=== PATIENT | male | born 1995 | race African-American/Black ===

== ENCOUNTER 2018-01-14 02:40 | Inpatient (IN) ==
[2018-01-16] MEDS ORDERED: Phenylephrine/NS 1000 MCG/10ML Syringe IV.PUSH ONE (12:00)
[2018-01-16] MEDS ORDERED: Lidocaine PF 1% Inj 5 ML Syringe INFILTRATN ONE (12:00)
[2018-01-17] MEDS ORDERED: Bisacodyl 10 MG Supp RECTAL PRN
[2018-01-17] MEDS ORDERED: Potassium Chloride 25 MEQ Effervescent Tablet PO PRN (00:01)
[2018-01-17] MEDS ORDERED: Acetaminophen 325 MG Tablet PO PRN (00:01)
[2018-01-17] MEDS ORDERED: Labetalol HCl Inj 100 MG/20 ML Vial IV.PUSH PRN (00:01)
[2018-01-17] MEDS ORDERED: niCARdipine Inj 25 MG in Sodium Chlor 0.9% Inj 250 ML IV.SIG PRN (00:01)
[2018-01-17] MEDS ORDERED: Chlorhexidine Gluconate 2% 1 Pack (2 Cloths) TOPICAL PRN (04:00)
[2018-01-17] MEDS: Senna/Docusate Sodium 8.6/50 MG Tablet PO SCH ×2 (08:56→22:52)
[2018-01-17] MEDS: Pantoprazole Inj 40 MG Vial IV.PUSH SCH (08:57)
[2018-01-17] MEDS: Sod Chloride 0.9% Inj 1,000 ML IV.SIG SCH ×2 (08:58→22:54)
[2018-01-17] MEDS: Chlorhexidine Gluconate 2% 1 Pack (2 Cloths) TOPICAL SCH (08:58)
[2018-01-17] MEDS: Artificial Tears Opth Drops 15 ML Bottle EACH EYE SCH ×3 (09:03→18:33)
--- NOTE | 2018-01-17 11:29 | P.PNNEU ---
Subjective Subjective Comments: sleeping acc to friend no new sx Active Medications: Active Medications Generic Name Dose Route Start Last Admin Trade Name Freq PRN Reason Stop Dose Admin Acetaminophen 650 mg 01/17/18 00:01 Tylenol PO Q6H PRN PAIN SCALE 1 TO 10 Al Hydroxide/Mg Hydroxide 30 ml 01/17/18 00:00 Milk Of Magnesia Liq PO Q12H PRN MILD CONSTIPATION Albuterol 2.5 mg 01/17/18 00:01 Albuterol Neb (Prn) INH Q2HR NEB PRN SHORTNESS OF BREATH/WHEEZING Artificial Tears 1 drop 01/17/18 09:00 01/17/18 09:03 Tears Naturale Opth Drops EACH EYE Not Given TID ABRAHAM Aspirin 81 mg 01/17/18 09:00 01/17/18 08:56 Ecotrin PO 81 mg DAILY ABRAHAM Administration Atorvastatin Calcium 10 mg 01/17/18 21:00 Lipitor PO HS [facility] Bisacodyl 10 mg 01/17/18 00:00 Dulcolax Supp RECTAL DAILY PRN SEVERE CONSITIPATION Chlorhexidine Gluconate 3 pack 01/17/18 04:00 01/17/18 08:58 Chlorhexidine 2% Cloth TOPICAL 01/22/18 03:59 Not Given DAILY@0400 [facility] Chlorhexidine Gluconate 3 pack 01/17/18 04:00 Chlorhexidine 2% Cloth TOPICAL UNSCH PRN Extra cloth needed Sodium Chloride 1,000 mls @ 84 mls/hr 01/17/18 00:01 01/17/18 08:58 Ns Inj IV.SIG Not Given .[id number] [facility] Nicardipine HCl 25 mg/ Sodium 260 mls @ 52 mls/hr 01/17/18 00:01 Chloride IV.SIG TITRATE PRN MAINTAIN BP GOAL Protocol 5 MG/HR Labetalol HCl 10 mg 01/17/18 00:01 Trandate Inj IV.PUSH Q2H PRN SBP>180, DBP>100, HR>65 Lactulose 30 ml 01/17/18 00:00 Lactulose Liq PO DAILY PRN SEVERE CONSITIPATION Ondansetron HCl 4 mg 01/17/18 00:01 Zofran Odt PO Q6H PRN NAUSEA OR VOMITING Pantoprazole Sodium 40 mg 01/17/18 09:00 01/17/18 08:57 Protonix Inj IV.PUSH 40 mg DAILY ABRAHAM Administration Potassium Bicarb/Potassium Chloride 50 meq 01/17/18 00:01 K-Lyte Cl Eff PO UNSCH PRN FOR POTASSIUM 3.3-3.5 MEQ/L Senna/Docusate Sodium 1 tab 01/17/18 09:00 01/17/18 08:56 Karen-Colace PO 1 tab BID ABRAHAM Administration Sennosides 17.2 mg 01/17/18 00:00 Senokot PO Q12H PRN MODERATE CONSTIPATION Sodium Chloride 2 ml 01/17/18 00:01 Ns Flush IV.FLUSH UNSCH PRN FLUSH AFTER USING IV ACCESS Sodium Chloride 2 ml 01/17/18 09:00 01/17/18 08:58 Ns Flush IV.FLUSH 2 ml BID ABRAHAM Administration Allergies/Adverse Reactions: Allergies Allergy/AdvReac Type Severity Reaction Status Date / Time codeine Allergy Severe UNKNOWN Verified 01/16/18 09:59 oxycodone Allergy Severe UNKNOWN Verified 01/16/18 09:59 Physical Exam Vital signs: Vital Signs 01/17/18 00:00 01/17/18 05:30 01/17/18 08:00 Temperature 98 F 98.8 F 97.7 F Pulse Rate 68 68 63 Respiratory Rate 16 16 18 Blood Pressure 138/69 130/64 131/66 Pulse Oximetry 97 99 98 Intake & Output 01/16/18 01/17/18 01/17/18 18:59 06:59 18:59 Intake Total 1200 / 1200 Output Total 0 / 0 Balance 1200 / 1200 Weight 93.2 kg 93.5 kg Intake: Oral 1200 / 1200 Output: Stool 0 / 0 Other: # Voids 4 Narrative: asleep Objective Laboratory Results - last 24 hr 01/14/18 01/14/18 01/14/18 03:00 03:00 03:00 WBC 8.0 RBC 5.66 Hgb 15.9 POC Hgb 16.3 Hct 47.0 POC Hct 48.0 MCV 83.0 MCH 28.2 MCHC 33.9 RDW 14.2 Plt Count 179 MPV 9.2 Neut % (Auto) 34.4 Lymph % (Auto) 52.1 H [place] % (Auto) 12.1 H Eos % (Auto) 1.0 Baso % (Auto) 0.4 Neut # (Auto) 2.8 Lymph # (Auto) 4.2 [place] # (Auto) 1.0 H Eos # (Auto) 0.1 Baso # (Auto) 0.0 CBC Comment DIFF FINAL ESR PT 10.6 INR 1.0 APTT 23.6 L Fibrinogen 206 L POC Sodium 140 Sodium 140 POC Potassium 3.2 L Potassium 3.2 L POC Chloride 98 L Chloride 105 Carbon Dioxide 24.1 Anion Gap 11 POC BUN 5 BUN 6 L Creatinine 1.22 POC Creatinine 1.1 Estimated GFR 90 POC Glucose 154 H Random Glucose 143 H Hemoglobin A1c Lactic Acid Calcium 8.7 Prot Corrected Calcium Phosphorus Magnesium Total Bilirubin 0.5 AST 13 L ALT 21 Alkaline Phosphatase 64 Total Creatine Kinase 138 Troponin I LESS THAN 0.02 L C-Reactive Protein Total Protein 7.6 Albumin 4.2 Triglycerides Cholesterol LDL Cholesterol HDL Cholesterol Cholesterol/HDL Ratio Vitamin B12 Folate Free T4 TSH 3rd Generation Urine Color Urine Turbidity Urine pH Ur Specific [place] Urine Protein Urine Glucose (UA) Urine Ketones Urine Occult Blood Urine Nitrite Urine Bilirubin Urine Urobilinogen Ur Leukocyte Esterase Urine RBC Urine WBC Urine Mucus Nasal Screen MRSA (PCR) Urine Opiates Screen Ur Barbiturates Screen Ur Amphetamines Screen U Benzodiazepines Scrn Urine Cocaine Screen U Cannabinoids Screen 01/14/18 01/14/18 01/14/18 03:00 05:00 06:00 WBC RBC Hgb POC Hgb Hct POC Hct MCV MCH MCHC RDW Plt Count MPV Neut % (Auto) Lymph % (Auto) [place] % (Auto) Eos % (Auto) Baso % (Auto) Neut # (Auto) Lymph # (Auto) [place] # (Auto) Eos # (Auto) Baso # (Auto) CBC Comment ESR PT INR APTT Fibrinogen POC Sodium Sodium Cancelled POC Potassium Potassium Cancelled POC Chloride Chloride Cancelled Carbon Dioxide Cancelled Anion Gap Cancelled POC BUN BUN Cancelled Creatinine Cancelled POC Creatinine Estimated GFR Cancelled POC Glucose Random Glucose Cancelled Hemoglobin A1c Lactic Acid Calcium Cancelled Prot Corrected Calcium Cancelled Phosphorus Magnesium Total Bilirubin Cancelled AST Cancelled ALT Cancelled Alkaline Phosphatase Cancelled Total Creatine Kinase Troponin I C-Reactive Protein Total Protein Cancelled Albumin Cancelled Triglycerides Cholesterol LDL Cholesterol HDL Cholesterol Cholesterol/HDL Ratio Vitamin B12 Folate Free T4 TSH 3rd Generation Urine Color Urine Turbidity Urine pH Ur Specific [place] Urine Protein Urine Glucose (UA) Urine Ketones Urine Occult Blood Urine Nitrite Urine Bilirubin Urine Urobilinogen Ur Leukocyte Esterase Urine RBC Urine WBC Urine Mucus Nasal Screen MRSA (PCR) MRSA NOT DETECTED Urine Opiates Screen NEG Ur Barbiturates Screen NEG Ur Amphetamines Screen NEG U Benzodiazepines Scrn NEG Urine Cocaine Screen NEG U Cannabinoids Screen POS H 01/14/18 01/15/18 01/15/18 06:00 05:21 05:21 WBC RBC Hgb POC Hgb Hct POC Hct MCV MCH MCHC RDW Plt Count MPV Neut % (Auto) Lymph % (Auto) [place] % (Auto) Eos % (Auto) Baso % (Auto) Neut # (Auto) Lymph # (Auto) [place] # (Auto) Eos # (Auto) Baso # (Auto) CBC Comment ESR PT INR APTT Fibrinogen POC Sodium Sodium 141 POC Potassium Potassium 3.4 L POC Chloride Chloride 106 Carbon Dioxide 25.3 Anion Gap 10 POC BUN BUN 4 L Creatinine 1.09 POC Creatinine Estimated GFR 103 POC Glucose Random Glucose 94 Hemoglobin A1c 4.9 Lactic Acid 1.2 Calcium 8.5 Prot Corrected Calcium Phosphorus 2.8 Magnesium 2.0 Total Bilirubin 1.1 H AST 11 L ALT 19 Alkaline Phosphatase 57 Total Creatine Kinase 92 Troponin I C-Reactive Protein Total Protein 7.2 Albumin 4.0 Triglycerides 60 Cholesterol 161 LDL Cholesterol 91 HDL Cholesterol 58.2 Cholesterol/HDL Ratio 2.76 Vitamin B12 Folate Free T4 TSH 3rd Generation Urine Color YELLOW Urine Turbidity CLEAR Urine pH 7.0 Ur Specific [place] 1.060 H Urine Protein NEG Urine Glucose (UA) NEG Urine Ketones NEG Urine Occult Blood NEG Urine Nitrite NEG Urine Bilirubin NEG Urine Urobilinogen LESS THAN 2 Ur Leukocyte Esterase NEG Urine RBC 1 Urine WBC LESS THAN 1 Urine Mucus FEW H Nasal Screen MRSA (PCR) Urine Opiates Screen Ur Barbiturates Screen Ur Amphetamines Screen U Benzodiazepines Scrn Urine Cocaine Screen U Cannabinoids Screen 01/15/18 01/15/18 01/15/18 05:21 05:21 15:00 WBC 7.9 RBC 5.57 Hgb 15.8 POC Hgb Hct 45.9 POC Hct MCV 82.4 MCH 28.4 MCHC 34.5 RDW 14.3 Plt Count 178 MPV 9.5 Neut % (Auto) 54.6 Lymph % (Auto) 32.4 [place] % (Auto) 11.8 H Eos % (Auto) 0.5 Baso % (Auto) 0.7 Neut # (Auto) 4.3 Lymph # (Auto) 2.6 [place] # (Auto) 0.9 Eos # (Auto) 0.0 Baso # (Auto) 0.1 CBC Comment DIFF FINAL ESR PT 11.3 INR 1.1 APTT 25.7 Fibrinogen POC Sodium Sodium POC Potassium Potassium 3.9 POC Chloride Chloride Carbon Dioxide Anion Gap POC BUN BUN Creatinine POC Creatinine Estimated GFR POC Glucose Random Glucose Hemoglobin A1c Lactic Acid Calcium Prot Corrected Calcium Phosphorus Magnesium Total Bilirubin AST ALT Alkaline Phosphatase Total Creatine Kinase Troponin I C-Reactive Protein Total Protein Albumin Triglycerides Cholesterol LDL Cholesterol HDL Cholesterol Cholesterol/HDL Ratio Vitamin B12 Folate Free T4 TSH 3rd Generation Urine Color Urine Turbidity Urine pH Ur Specific [place] Urine Protein Urine Glucose (UA) Urine Ketones Urine Occult Blood Urine Nitrite Urine Bilirubin Urine Urobilinogen Ur Leukocyte Esterase Urine RBC Urine WBC Urine Mucus Nasal Screen MRSA (PCR) Urine Opiates Screen Ur Barbiturates Screen Ur Amphetamines Screen U Benzodiazepines Scrn Urine Cocaine Screen U Cannabinoids Screen 01/16/18 01/16/18 17:41 17:41 WBC RBC Hgb POC Hgb Hct POC Hct MCV MCH MCHC RDW Plt Count MPV Neut % (Auto) Lymph % (Auto) [place] % (Auto) Eos % (Auto) Baso % (Auto) Neut # (Auto) Lymph # (Auto) [place] # (Auto) Eos # (Auto) Baso # (Auto) CBC Comment ESR 1 PT INR APTT Fibrinogen POC Sodium Sodium POC Potassium Potassium POC Chloride Chloride Carbon Dioxide Anion Gap POC BUN BUN Creatinine POC Creatinine Estimated GFR POC Glucose Random Glucose Hemoglobin A1c Lactic Acid Calcium Prot Corrected Calcium Phosphorus Magnesium Total Bilirubin AST ALT Alkaline Phosphatase Total Creatine Kinase Troponin I C-Reactive Protein LESS THAN 0.29 Total Protein Albumin Triglycerides Cholesterol LDL Cholesterol HDL Cholesterol Cholesterol/HDL Ratio Vitamin B12 875 Folate 6.9 Free T4 1.19 TSH 3rd Generation 1.130 Urine Color Urine Turbidity Urine pH Ur Specific [place] Urine Protein Urine Glucose (UA) Urine Ketones Urine Occult Blood Urine Nitrite Urine Bilirubin Urine Urobilinogen Ur Leukocyte Esterase Urine RBC Urine WBC Urine Mucus Nasal Screen MRSA (PCR) Urine Opiates Screen Ur Barbiturates Screen Ur Amphetamines Screen U Benzodiazepines Scrn Urine Cocaine Screen U Cannabinoids Screen Review/Management - Review/Management Plan: imp bahman is negative a hyperechoic screen is pending his other blood work looks fine his Holter monitor is pending echocardiogram is normal. His EEG was normal. This likely was a complicated migraine and he should take a baby aspirin a day. Dr. najera will follow up in the a.m. Cardiology has recommended a stress test. ldl nl
--- NOTE | 2018-01-17 15:28 | P.PNCA ---
Subjective Interval history: Follow up for Dr. Dunbar No events overnight Doing well post-MAKENNA Physical Exam Vital signs: Vital Signs 01/17/18 00:00 01/17/18 05:30 01/17/18 08:00 Temperature 98 F 98.8 F 97.7 F Pulse Rate 68 68 63 Respiratory Rate 16 16 18 Blood Pressure 138/69 130/64 131/66 Pulse Oximetry 97 99 98 01/17/18 12:00 01/17/18 14:30 Temperature 98.7 F Pulse Rate 62 Respiratory Rate 18 Blood Pressure 142/66 H Pulse Oximetry 99 98 Intake & Output 01/16/18 01/17/18 01/17/18 18:59 06:59 18:59 Intake Total 1200 / 1200 Output Total 0 / 0 Balance 1200 / 1200 Weight 93.2 kg 93.5 kg Intake: Oral 1200 / 1200 Output: Stool 0 / 0 Other: # Voids 4 Narrative: GENERAL: NAD, AAOx3 SKIN: Warm and dry. HEAD: Atraumatic. Normocephalic. EYES: Pupils equal and round. No scleral icterus. No injection or drainage. ENT: No nasal bleeding or discharge. Mucous membranes pink and moist. NECK: Trachea midline. No JVD. CARDIOVASCULAR: Regular rate and rhythm. RESPIRATORY: No accessory muscle use. Clear to auscultation. Breath sounds equal bilaterally. GASTROINTESTINAL: Abdomen soft, non-tender, nondistended. Hepatic and splenic margins not palpable. MUSCULOSKELETAL: Extremities without clubbing, cyanosis, or edema. No obvious deformities. NEUROLOGICAL: Awake and alert. No obvious cranial nerve deficits. Motor grossly within normal limits. Five out of 5 muscle strength in the arms and legs. Normal speech. PSYCHIATRIC: Appropriate mood and affect; insight and judgment normal. Assessment and Plan - Assessment (1) Complicated migraine Code(s): G43.109 - Migraine with aura, not intractable, without status migrainosus Status: Acute (2) Chest pain Code(s): R07.9 - Chest pain, unspecified Status: Acute - Plan 1) Left sided neurologic issues Resolved s/p TPA Per Neurology, most likely complicated migraine MAKENNA negative for PFO 2) Chest pain Has been having retrosternal chest pain Most likely low risk in a 22 year old Plan for stress test Discussed that he was getting radiation at such a young age, he and his mother understand NPO after midnight If negative then can be discharged home from cardiovascular standpoint
--- NOTE | 2018-01-17 15:29 | P.PN ---
Subjective Interval history: Resting comfortably in bed No event overnight Denied chest and or short of breath No fever or chills Physical Exam Vital signs: Vital Signs 01/17/18 00:00 01/17/18 05:30 01/17/18 08:00 Temperature 98 F 98.8 F 97.7 F Pulse Rate 68 68 63 Respiratory Rate 16 16 18 Blood Pressure 138/69 130/64 131/66 Pulse Oximetry 97 99 98 01/17/18 12:00 01/17/18 14:30 Temperature 98.7 F Pulse Rate 62 Respiratory Rate 18 Blood Pressure 142/66 H Pulse Oximetry 99 98 Intake & Output 01/16/18 01/17/18 01/17/18 18:59 06:59 18:59 Intake Total 1200 / 1200 Output Total 0 / 0 Balance 1200 / 1200 Weight 93.2 kg 93.5 kg Intake: Oral 1200 / 1200 Output: Stool 0 / 0 Other: # Voids 4 Narrative: GENERAL: This is a well-nourished, well-developed patient, in no apparent distress. CARDIOVASCULAR: RRR, no gallops, or rubs. RESPIRATORY: Fair air entry bilaterally. No W, R, or R GASTROINTESTINAL: Abdomen soft, non-tender, nondistended. Positive bowel sounds MUSCULOSKELETAL: Extremities without clubbing, cyanosis, or edema. Pedal pulses appreciated NEUROLOGICAL: Awake and alert. Moves all extremity. Normal speech.no focal neurological deficit Results - Labs CBC & Chem 7: 01/15/18 05:21 01/15/18 15:00 Laboratory Results - last 24 hr 01/14/18 01/14/18 01/14/18 03:00 03:00 03:00 WBC 8.0 RBC 5.66 Hgb 15.9 POC Hgb 16.3 Hct 47.0 POC Hct 48.0 MCV 83.0 MCH 28.2 MCHC 33.9 RDW 14.2 Plt Count 179 MPV 9.2 Neut % (Auto) 34.4 Lymph % (Auto) 52.1 H [place] % (Auto) 12.1 H Eos % (Auto) 1.0 Baso % (Auto) 0.4 Neut # (Auto) 2.8 Lymph # (Auto) 4.2 [place] # (Auto) 1.0 H Eos # (Auto) 0.1 Baso # (Auto) 0.0 CBC Comment DIFF FINAL ESR PT 10.6 INR 1.0 APTT 23.6 L Fibrinogen 206 L POC Sodium 140 Sodium 140 POC Potassium 3.2 L Potassium 3.2 L POC Chloride 98 L Chloride 105 Carbon Dioxide 24.1 Anion Gap 11 POC BUN 5 BUN 6 L Creatinine 1.22 POC Creatinine 1.1 Estimated GFR 90 POC Glucose 154 H Random Glucose 143 H Hemoglobin A1c Lactic Acid Calcium 8.7 Prot Corrected Calcium Phosphorus Magnesium Total Bilirubin 0.5 AST 13 L ALT 21 Alkaline Phosphatase 64 Total Creatine Kinase 138 Troponin I LESS THAN 0.02 L C-Reactive Protein Total Protein 7.6 Albumin 4.2 Triglycerides Cholesterol LDL Cholesterol HDL Cholesterol Cholesterol/HDL Ratio Vitamin B12 Folate Free T4 TSH 3rd Generation Urine Color Urine Turbidity Urine pH Ur Specific [place] Urine Protein Urine Glucose (UA) Urine Ketones Urine Occult Blood Urine Nitrite Urine Bilirubin Urine Urobilinogen Ur Leukocyte Esterase Urine RBC Urine WBC Urine Mucus Nasal Screen MRSA (PCR) Urine Opiates Screen Ur Barbiturates Screen Ur Amphetamines Screen U Benzodiazepines Scrn Urine Cocaine Screen U Cannabinoids Screen 01/14/18 01/14/18 01/14/18 03:00 05:00 06:00 WBC RBC Hgb POC Hgb Hct POC Hct MCV MCH MCHC RDW Plt Count MPV Neut % (Auto) Lymph % (Auto) [place] % (Auto) Eos % (Auto) Baso % (Auto) Neut # (Auto) Lymph # (Auto) [place] # (Auto) Eos # (Auto) Baso # (Auto) CBC Comment ESR PT INR APTT Fibrinogen POC Sodium Sodium Cancelled POC Potassium Potassium Cancelled POC Chloride Chloride Cancelled Carbon Dioxide Cancelled Anion Gap Cancelled POC BUN BUN Cancelled Creatinine Cancelled POC Creatinine Estimated GFR Cancelled POC Glucose Random Glucose Cancelled Hemoglobin A1c Lactic Acid Calcium Cancelled Prot Corrected Calcium Cancelled Phosphorus Magnesium Total Bilirubin Cancelled AST Cancelled ALT Cancelled Alkaline Phosphatase Cancelled Total Creatine Kinase Troponin I C-Reactive Protein Total Protein Cancelled Albumin Cancelled Triglycerides Cholesterol LDL Cholesterol HDL Cholesterol Cholesterol/HDL Ratio Vitamin B12 Folate Free T4 TSH 3rd Generation Urine Color Urine Turbidity Urine pH Ur Specific [place] Urine Protein Urine Glucose (UA) Urine Ketones Urine Occult Blood Urine Nitrite Urine Bilirubin Urine Urobilinogen Ur Leukocyte Esterase Urine RBC Urine WBC Urine Mucus Nasal Screen MRSA (PCR) MRSA NOT DETECTED Urine Opiates Screen NEG Ur Barbiturates Screen NEG Ur Amphetamines Screen NEG U Benzodiazepines Scrn NEG Urine Cocaine Screen NEG U Cannabinoids Screen POS H 01/14/18 01/15/18 01/15/18 06:00 05:21 05:21 WBC RBC Hgb POC Hgb Hct POC Hct MCV MCH MCHC RDW Plt Count MPV Neut % (Auto) Lymph % (Auto) [place] % (Auto) Eos % (Auto) Baso % (Auto) Neut # (Auto) Lymph # (Auto) [place] # (Auto) Eos # (Auto) Baso # (Auto) CBC Comment ESR PT INR APTT Fibrinogen POC Sodium Sodium 141 POC Potassium Potassium 3.4 L POC Chloride Chloride 106 Carbon Dioxide 25.3 Anion Gap 10 POC BUN BUN 4 L Creatinine 1.09 POC Creatinine Estimated GFR 103 POC Glucose Random Glucose 94 Hemoglobin A1c 4.9 Lactic Acid 1.2 Calcium 8.5 Prot Corrected Calcium Phosphorus 2.8 Magnesium 2.0 Total Bilirubin 1.1 H AST 11 L ALT 19 Alkaline Phosphatase 57 Total Creatine Kinase 92 Troponin I C-Reactive Protein Total Protein 7.2 Albumin 4.0 Triglycerides 60 Cholesterol 161 LDL Cholesterol 91 HDL Cholesterol 58.2 Cholesterol/HDL Ratio 2.76 Vitamin B12 Folate Free T4 TSH 3rd Generation Urine Color YELLOW Urine Turbidity CLEAR Urine pH 7.0 Ur Specific [place] 1.060 H Urine Protein NEG Urine Glucose (UA) NEG Urine Ketones NEG Urine Occult Blood NEG Urine Nitrite NEG Urine Bilirubin NEG Urine Urobilinogen LESS THAN 2 Ur Leukocyte Esterase NEG Urine RBC 1 Urine WBC LESS THAN 1 Urine Mucus FEW H Nasal Screen MRSA (PCR) Urine Opiates Screen Ur Barbiturates Screen Ur Amphetamines Screen U Benzodiazepines Scrn Urine Cocaine Screen U Cannabinoids Screen 01/15/18 01/15/18 01/15/18 05:21 05:21 15:00 WBC 7.9 RBC 5.57 Hgb 15.8 POC Hgb Hct 45.9 POC Hct MCV 82.4 MCH 28.4 MCHC 34.5 RDW 14.3 Plt Count 178 MPV 9.5 Neut % (Auto) 54.6 Lymph % (Auto) 32.4 [place] % (Auto) 11.8 H Eos % (Auto) 0.5 Baso % (Auto) 0.7 Neut # (Auto) 4.3 Lymph # (Auto) 2.6 [place] # (Auto) 0.9 Eos # (Auto) 0.0 Baso # (Auto) 0.1 CBC Comment DIFF FINAL ESR PT 11.3 INR 1.1 APTT 25.7 Fibrinogen POC Sodium Sodium POC Potassium Potassium 3.9 POC Chloride Chloride Carbon Dioxide Anion Gap POC BUN BUN Creatinine POC Creatinine Estimated GFR POC Glucose Random Glucose Hemoglobin A1c Lactic Acid Calcium Prot Corrected Calcium Phosphorus Magnesium Total Bilirubin AST ALT Alkaline Phosphatase Total Creatine Kinase Troponin I C-Reactive Protein Total Protein Albumin Triglycerides Cholesterol LDL Cholesterol HDL Cholesterol Cholesterol/HDL Ratio Vitamin B12 Folate Free T4 TSH 3rd Generation Urine Color Urine Turbidity Urine pH Ur Specific [place] Urine Protein Urine Glucose (UA) Urine Ketones Urine Occult Blood Urine Nitrite Urine Bilirubin Urine Urobilinogen Ur Leukocyte Esterase Urine RBC Urine WBC Urine Mucus Nasal Screen MRSA (PCR) Urine Opiates Screen Ur Barbiturates Screen Ur Amphetamines Screen U Benzodiazepines Scrn Urine Cocaine Screen U Cannabinoids Screen 01/16/18 01/16/18 17:41 17:41 WBC RBC Hgb POC Hgb Hct POC Hct MCV MCH MCHC RDW Plt Count MPV Neut % (Auto) Lymph % (Auto) [place] % (Auto) Eos % (Auto) Baso % (Auto) Neut # (Auto) Lymph # (Auto) [place] # (Auto) Eos # (Auto) Baso # (Auto) CBC Comment ESR 1 PT INR APTT Fibrinogen POC Sodium Sodium POC Potassium Potassium POC Chloride Chloride Carbon Dioxide Anion Gap POC BUN BUN Creatinine POC Creatinine Estimated GFR POC Glucose Random Glucose Hemoglobin A1c Lactic Acid Calcium Prot Corrected Calcium Phosphorus Magnesium Total Bilirubin AST ALT Alkaline Phosphatase Total Creatine Kinase Troponin I C-Reactive Protein LESS THAN 0.29 Total Protein Albumin Triglycerides Cholesterol LDL Cholesterol HDL Cholesterol Cholesterol/HDL Ratio Vitamin B12 875 Folate 6.9 Free T4 1.19 TSH 3rd Generation 1.130 Urine Color Urine Turbidity Urine pH Ur Specific [place] Urine Protein Urine Glucose (UA) Urine Ketones Urine Occult Blood Urine Nitrite Urine Bilirubin Urine Urobilinogen Ur Leukocyte Esterase Urine RBC Urine WBC Urine Mucus Nasal Screen MRSA (PCR) Urine Opiates Screen Ur Barbiturates Screen Ur Amphetamines Screen U Benzodiazepines Scrn Urine Cocaine Screen U Cannabinoids Screen Assessment and Plan - Plan 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 CT angiogram of the brain and neck 01/14 revealed no acute findings Status post alteplase 8.2 mg bolus followed by 74 mg Keep systolic blood pressure less than 180 diastolic blood pressure less than 105 2D echocardiogram ordered with bubble study lipid profile and hemoglobin A1c all within normal limits, A1c 4.9, total cholesterol 161 Neurochecks MRI brain ordered for today CT brain 24 hours post alteplase negative CTA of the neck on 01/15 also negative Neurology consulted cardiology for MAKENNA rule out PFO PT/OT/ST evaluate and treat 01/16: MRI of the brain is ordered by neurology reviewed personally by me negative, patient going for MAKENNA at 3 PM, continue following with cardiology and neurology 01/17: MAKENNA is negative, discussed with neurology and with cardiology, neurology saying it might be possibly stroke type migraine, discussed with cardiology and for stress test tomorrow, monitor clinically under telemetry, EEG negative
[2018-01-18] MEDS: Chlorhexidine Gluconate 2% 1 Pack (2 Cloths) TOPICAL SCH (04:12)
--- NOTE | 2018-01-18 07:54 | MG ---
cc: Fuentes Eric MD DATE: 01/17/2018. EEG NUMBER: [id number] INDICATION: History of TIA, left-sided numbness. Aspirin. DESCRIPTION: A 9-10 Hz, 60 microvolt posterior rhythm is seen. Recording overall is synchronous and symmetric. I do not see any temporal lobe abnormalities. No right hemisphere abnormalities are seen. Photic stimulation is performed without significant posterior driving. Hyperventilation is performed without change in the background. IMPRESSION: Normal awake EEG. No evidence for focal or diffuse abnormality. Fuentes Eric MD DJM/TL , 10:14 AM , 11:07 AM
[2018-01-18] MEDS: Pantoprazole Inj 40 MG Vial IV.PUSH SCH (08:51)
[2018-01-18] MEDS: Artificial Tears Opth Drops 15 ML Bottle EACH EYE SCH (08:54)
[2018-01-18] MEDS: Senna/Docusate Sodium 8.6/50 MG Tablet PO SCH (08:56)
[2018-01-18] MEDS: Sod Chloride 0.9% Inj 1,000 ML IV.SIG SCH (11:32)
--- NOTE | 2018-01-18 12:22 | P.PNCA ---
Subjective Interval history: No events overnight Anxious to get home Physical Exam Vital signs: Vital Signs 01/17/18 14:30 01/17/18 16:00 01/17/18 21:57 Temperature 99.1 F 99 F Pulse Rate 60 75 Respiratory Rate 18 16 Blood Pressure 129/73 139/90 Pulse Oximetry 98 98 100 01/18/18 00:50 01/18/18 05:00 01/18/18 08:36 Temperature 98 F 98.8 F 98.8 F Pulse Rate 69 60 73 Respiratory Rate 16 16 20 Blood Pressure 128/89 125/88 129/71 Pulse Oximetry 100 100 98 01/18/18 12:10 Temperature 98.0 F Pulse Rate 77 Respiratory Rate 20 Blood Pressure 132/84 Pulse Oximetry 99 Intake & Output 01/17/18 01/18/18 01/18/18 18:59 06:59 18:59 Intake Total 1999 Balance 1999 Weight 93.5 kg Intake: Oral 1999 Other: # Voids 5 4 # Bowel Movements 0 - Constitutional no acute distress, mild distress - Routine HEENT Exam Head: Present: normocephalic, atraumatic Eye: Present: EOMI, PERRL ENT: Present: mucous membranes moist - Routine Neck Exam Present: supple. Absent: JVD - Routine Respiratory Exam Present: CTA bilaterally. Absent: accessory muscle use - Routine Cardiovascular Exam Present: RRR, S1, S2 - Routine Abdominal Exam Present: soft, normoactive bowel sounds. Absent: tenderness - Routine Extremities Exam Absent: cyanosis, clubbing, edema - Routine Skin Exam Present: intact, dry. Absent: cyanosis, erythema - Routine Neurological Exam Present: alert, oriented X3, CN II-XII intact - Routine Psychiatric Exam Present: normal affect Assessment and Plan - Assessment (1) Complicated migraine Code(s): G43.109 - Migraine with aura, not intractable, without status migrainosus Status: Acute (2) Chest pain Code(s): R07.9 - Chest pain, unspecified Status: Acute - Plan 1) Left sided neurologic issues Resolved s/p TPA Per Neurology, most likely complicated migraine MAKENNA negative for PFO 2) Chest pain Has been having retrosternal chest pain Most likely low risk in a 22 year old Plan for stress test Discussed that he was getting radiation at such a young age, he and his mother understand If negative then can be discharged home from cardiovascular standpoint
--- NOTE | 2018-01-18 17:45 | P.DS ---
Date of admission: 01/14/18 04:14 Primary care physician: No Primary Care Physician Brief History from admission: This is a 22 yo AAM. Date of admission 01/06/2018. Past medical history is negative.2 patient presents to [facility] with acute onset of paresthesias/ sensation of numbness involving the left side of face, left side of body including left arm and left leg, and acute weakness involving the left arm the left leg. Mr. Segal states that his symptoms initiated during sexual intercourse about half an hour prior to arrival. Patient states that his penis became flaccid and he started having paresthesias in his left inguinal region.. Afterwards, acute onset of numbness sensation in the left side of face, left arm and left leg and then weakness of the left arm and left leg. Patient states that he started having numbness sensation of left-sided chest wall also. Patient complains of mild achiness in the left lower back area. Patient denies any headache. Patient denies any visual change. Patient denies any neck pain. Patient denies any chest pain or shortness of breath. Patient denies abdominal pain. Patient denies any injury including recent rectal trauma. Patient is not on any routine medication but recently took alprazolam within the past 10 days. Patient denies any alcohol abuse but occasionally does use alcohol. Patient states that his smoke pot occasionally. Patient denies a history of cocaine abuse. Patient denies any other illicit drug abuse. Patient denies any personal or family history of arrhythmia TIA or CVA. His sister does have a history of heart murmur NIH score was 4 including 1 for drift right arm and leg and 2 for sensory deficit. Patient had CT brain, CT angiogram of the head and neck which revealed no acute findings. Patient received 8.2 mg alteplase followed by a 74 mg infusion after discussion with follow-up. MRI of the brain along with 2D echocardiogram is ordered. Patient's symptoms are essentially resolved with examination in the ED in room C 25 DS: Diagnosis - Discharge Diagnosis (1) Complicated migraine Status: Acute DS: Medications - Discharge Medications Prescriptions: aspirin 81 mg PO DAILY #30 tab DS: Summary Hospital Course: 22 years old admitted to the ED with left upper and lower extremity weakness and paresthesia initially was as stroke alert patient got TPA neurology consulted, multiple imaging did not show significant including CT brain CTA and MRI of the brain did not reveal stroke, neurology was following during that MAKENNA was recommended to rule out PFO and this came back negative, therefore neurology thought it is none stroke type migraine, cardiology was consulted for MAKENNA and the patient at that time complained of chest pain so he recommended stress test however patient declined and he stated he will follow up and do the test as an outpatient. Patient was sent on aspirin per neurology recommendation , his lipid panel within normal limits no need for statin - Time Spent with Patient Total time spent providing and/or coordinating discharge services: Exam Vital signs: Vital Signs 01/17/18 21:57 01/18/18 00:50 01/18/18 05:00 Temperature 99 F 98 F 98.8 F Pulse Rate 75 69 60 Respiratory Rate 16 16 16 Blood Pressure 139/90 128/89 125/88 Pulse Oximetry 100 100 100 01/18/18 08:00 01/18/18 08:36 01/18/18 12:10 Temperature 98.8 F 98.0 F Pulse Rate 75 73 77 Respiratory Rate 20 20 Blood Pressure 129/71 132/84 Pulse Oximetry 98 99 Intake & Output 01/17/18 01/18/18 01/18/18 18:59 06:59 18:59 Intake Total 1999 Balance 1999 Weight 93.5 kg Intake: Oral 1999 Other: # Voids 5 1 Date of Last Bowel Movement 01/18/18 01/18/18 # Bowel Movements 0 Results Procedures completed during hospitalization: TPA, MAKENNA Discharge Plan - Discharge Disposition Patient Disposition: 01 Discharge Home - Discharge Condition Condition: Good - Discharge Order Discharge Orders: Discharge Order (Routine); Ordered 01/18/18 Ordered By: Sadie Kraus - Physicians Team Primary Care Provider: Primary Care Holly Sibley Attending Provider: Sadie Kraus Other Providers: Sonido Dunbar MD ; Timi Watkins MD ; Sadie Kraus MD ; Brendan Kelsey MD - Rxs /Orders / Referrals /Forms Prescriptions: New aspirin 81 mg Tablet,Delayed Release (Dr/Ec) 81 mg PO DAILY Qty: 30 RF: 0 Referrals: Sonido Dunbar MD [Physician] - 01/22/18 ( office is closed fro January 18- please xacarmen santos that to schedule appt.) Fuentes Malave MD [Physician] - 01/22/18 (office was closed foe lunch call for appt.) Primary Care Holly Sibley [Primary Care Provider] - See Instructions ([facility] [phone] pleas call to make appt.)
--- NOTE | 2018-01-22 09:37 | HM ---
Date Performed: 01/16/2018 Time Performed: 18:53:00 HOOKUP DATE: 01/16/18 06:53:00 PM Sat ANALYSIS START TIME: 01/16/2018 6:58:00 PM ANALYSIS END TIME: 01/17/2018 1:58:08 PM PATIENT AGE: 22 PATIENT HEIGHT: 76 PATIENT WEIGHT: 206 DRUG LIST: ACUTE CVA PATIENT DIAGNOSIS: ROOM 1502 TEST NARRATIVE: The patient's average heart rate was 68 BPM. No episodes of tachycardia wer e noted. Heart rates less than 50 BPM were noted 14% of the time. No pauses exceeding 2.0 second s were noted. 2 ventricular ectopics, which represented < 1% of the total beat count, were noted. The highest ventricular ectopic frequency occurred from 01:00 AM to 02:00 AM Sun. During this time 1 VE(s) occurred. Ventricular ectopics were observed as 2 isolated beat(s) only. No couplets or ru ns were noted. 5 supraventricular ectopics, which represented < 1% of the total beat count, were noted. The highest supraventricular ectopic frequency occurred from 05:00 AM to 06:00 AM Sun. Durin g this time 5 SVE(s) occurred. No episodes of ST depression (defined as -1.0 mm or more) were not ed in channel 1. No episodes of ST depression (defined as -1.0 mm or more) were noted in channel 2. No episodes of ST depression (defined as -1.0 mm or more) were noted in channel 3. NO DIARY ENTRIES WERE RECORDED BY THE PATIENT TEST INTERPRETATION: Holter monitor demonstrates normal Sinus rhythm with sinus bradycardia to 39 bpm at 0248 and a maximum of 115 bpm at 1000. A rare PAC and PVC were n oted. No other events were seen. Signed by : Fuentes Gilbert
== END 2018-01-18 12:30 | disposition home or self-care (01) ==
LOC: N05 04:14
PROVIDERS: ADMIT Hospitalist; ATTEND Hospitalist